=== PATIENT | male | born 1985 | race Hispanic/Latino ===

== ENCOUNTER 2020-02-18 06:27 | Emergency (ER) | payer OTHER ==
[~2020-02-18] VITALS: Ht 170.2 cm; Wt 100.0 kg
[2020-02-18 07:11] LABS: HEMATOCRIT 47.9 % (39.0-50.0); HEMOGLOBIN 15.4 g/dl (14.0-18.0); IMMATURE GRANULOCYTES 0.2 % (0.0-5.0); MEAN CELL VOLUME 89.7 fL CALC (80.0-100.0); MEAN CORPUSCULAR HGB 28.8 pG CALC (26.0-32.0); MEAN CORPUSCULAR HGB CONC 32.2 g/dL CAL (32.0-36.0); NEUT# 7.42 thou/uL (1.82-7.42); RED BLOOD COUNT 5.34 mill/uL (4.70-6.10); RED CELL DISTRI WIDTH 13.1 % (11.5-15.5)
[2020-02-18 07:25] LABS: ALBUMIN 4.6 g/dL (3.2-5.0); ALKALINE PHOSPHATASE 115 u/l (38-126); ANION GAP 13 (6-22 (CALC)); BILIRUBIN, TOTAL 0.9 mg/dL (0.0-1.4); BUN 17 mg/dL (9-20); BUN/CREATININE RATIO 20 (12-20 (CALC)); CARBON DIOXIDE 23 mmol/l (22-30); CHLORIDE 109 mmol/l (95-108); CREATININE 0.8 mg/dL (0.7-1.3); GFR > 60 ML/MIN (>=60 (CALC)); GFR FOR AFR.AMER. > 60 ML/MIN (>=60 (CALC)); POTASSIUM 4.8 mmol/l (3.5-5.1); SGOT/AST 37 u/l (17-59); SODIUM 139 mmol/l (137-146); TOTAL PROTEIN 8.3 g/dL (6.3-8.2)
[2020-02-18 07:37] LABS: MYOGLOBIN 57 ng/mL (0 - 121)
[2020-02-18] MEDS ORDERED: IBUPROFEN600 MG PO (08:28)
[2020-02-18 08:40] VITALS: BP 152/80
== END 2020-02-18 08:40 | disposition home or self-care (01) | DRG 604 ==
LOC: ED 06:27
PROVIDERS: Family Medicine
DX: S20.212A Contusion of left front wall of thorax, initial encounter (principal); U07.1 COVID-19; V49.40XA Driver injured in collision with unspecified motor vehicles in traffic accident, initial encounter